=== PATIENT | male | born 1965 | race Caucasian/White ===

== ENCOUNTER 2017-02-27 18:16 | Emergency (ER) | payer OTHER ==
[~2017-02-27] VITALS: Ht 175.3 cm; Wt 81.8 kg
[2017-02-27 18:45] VITALS: BP 166/100; PULSE 92; RESP 17; O2SAT 97
--- NOTE | 2017-02-27 18:59 | ED.REPORT ---
HPI-Extremity Problem Upper Date of Service Feb 27, 2017 ED Provider: Marquez Maldonado MD Pt is a 51 year old male presenting to the ED complaining of pain to his left hand onset just prior to arrival. He reports that he was removing a lug nut when his tool slipped and he cut his hand. He is unsure when his last tetanus shot was. Denies being on blood thinners. He states that he is able to fully flex and extend his fingers. He denies numbness or tingling. No other injuries. Nursing Notes Stated Complaint: CUT FINGERS Chief Complaint: Laceration Nursing Notes Reviewed: Yes Allergies: Coded Allergies: No Known Allergies (Unverified , 02/27/17) General Time Seen by MD: 18:56 Chief Complaint Hand Injury left Hx Obtained From: Patient Arrived By: Walk-in Onset Occurred: Just prior to arrival Symptom Duration: Since onset Caused by: Accidental Location: : Hand left Quality: Painful Severity: Current: Moderate Severity: Maximum: Moderate Recent Healthcare: No recent doctor visit, No recent hospitalization Similar Sx Previous: No Past Medical History Past Medical History denies Past Surgical History denies Smoking History Never Smoker Ambulatory Status Independent Review of Systems Review of Systems Note: Reports laceration to hand Constitutional: Denies: Chills, Fever Neurologic: Denies: Weakness Complete sys rev & neg: except as marked. Respiratory: Denies: Shortness of breath GI: Denies: Abdominal pain, Vomiting Physical Exam Initial Vital Signs Initial VS: Reviewed General/Constitutional: Well-developed, Well-nourished Head / Eyes: Atraumatic, Normocephalic, PERRL ENT: Mucous membranes moist, Conjunctiva normal, No scleral icterus Respiratory: Breath sounds normal, Clear to auscultation, No respiratory distress Cardiovascular: Regular rate & rhythm, Heart sounds normal, Intact distal pulses Abdomen / GI: Soft, Non-tender, No guarding, No rebound, No distention Lower Extremities: Vascular intact, Neuro intact, No swelling, No tenderness Neurologic: Alert, Oriented, Nonfocal Psychiatric: Mood/affect normal, Behavior normal, Normal thought content Upper Extremity / MS: Neurologic intact, Vascular intact 2 cm laceration to left 3rd finger about palmar aspect. Left 4th finger 3cm laceration subcuatneous tissue. No exposed ligaments. Able to fully flex and extend fingers. Skin: Warm, Dry Procedures Laceration Management Laceration Management: patient with 2 lacertions one is 2 cm long, the other is 3 cm in length Time: 19:30 Procedure Performed by: Allied health pract Consent / Setup / Site Prep: Informed consent provided, Consent from patient , Time-out performed, Hand hygiene observed, Stand sterile technique Location of Wound: fingers Wound Length: 3 cm Local Anesthesia: Lidocaine 1%, 4cc, 27g needle Digital Block: Yes Digit Involved: Middle finger left, Ring finger left Wound Preparation: Normal saline Debridement: None Irrigation: Copious Undermining / Margins: Flaps aligned Repair Skin: ___ O (5), Nylon # Sutures - Skin: 6 Closure Layers: 1 Suture Technique: Simple Post-Procedure / Complications: Antibiotic oint applied, Dressing applied, No complications, Condition improved, Tolerated procedure well, Patient stable Re-Eval/Medical Decision Med Decision/Clinical Course Pt is a 51 year old male presenting to the ED complaining of pain to his left hand onset just prior to arrival. He reports that he was removing a lug nut when his tool slipped and he cut his hand. He is unsure when his last tetanus shot was. Denies being on blood thinners. He states that he is able to fully flex and extend his fingers. He denies numbness or tingling. No other injuries. Examination reveals lacerations as described above. Wound was prepped and draped in the usual sterile fashion and copiously irrigated. No foreign bodies were present. X-rays demonstrated no acute fractures or foreign bodies. Laceration was repaired as documented above. At this time I feel the patient is appropriate for discharge. Prior to discharge follow-up and return precautions were reviewed in detail with the patient who verbalized understanding and agreement with the plan. The patient was discharged in stable condition. Re-Evaluation/Progress : Time of Eval: 19:17 Patient Status: Condition improved Re-Evaluation/Progress Note: Discussed plan for discharge. Pt understands and agrees. Counseled Regarding: Diagnosis, Lab results, Need for follow-up, When/why to return to ED Discharge & Departure Impression: Primary Impression: Laceration of multiple sites of left hand and fingers Encounter type: initial encounter Qualified Code: S61.412A - Laceration without foreign body of left hand, initial encounter Additional Impression: Left hand pain Disposition: Home Discharge Condition All VS Reviewed: Yes Condition: Improved Patient Instructions: Finger Laceration (ED) Additional Instructions: Return in 10 days for suture removal. Return to the ER immediately if you develop any redness, warmth, fever or chills. Follow up with your primary care doctor in the next 2-3 days. Referrals: [facility] Provider for APC: Marquez Maldonado MD Attestation Portions of this note were transcribed by Ronna Arellano. I, Dr. Maldonado personally performed the history, physical exam and medical decision-making; I reviewed and confirmed the accuracy of the information in the transcribed note. Signed by: Rene De Dios, 02/27/2017 at 2023. copies to: [facility] Marquez Maldonado MD Feb 27, 2017 18:59 RONNA ARELLANO Feb 27, 2017 19:21 Emma Cordero Feb 27, 2017 19:54 Signed by: Rene De Dios, 02/27/2017 at 2023. copies to: [facility] Marquez Maldonado MD Feb 27, 2017 18:59 RONNA ARELLANO Feb 27, 2017 19:21 Emma Cordero Feb 27, 2017 19:54
[2017-02-27] MEDS ORDERED: TdaP Vaccine 0.5 mL Inj IM ONE (19:15)
--- NOTE | 2017-02-27 19:35 | DRSVH ---
PROCEDURE: X-RAY FINGERS, TWO VIEWS INDICATIONS: Foreign body, laceration TECHNIQUE: AP hand, 2 views of the left finger(s) acquired. COMPARISON: None. FINDINGS: Bones: Age-indeterminate likely chronic fracture deformity of the distal left fourth phalanx. Soft tissues: No suspicious soft tissue calcifications. No radiopaque foreign bodies. IMPRESSION: Chronic appearing fracture deformity of the distal left fourth phalanx. No radiopaque for eign bodies. Dictated by: Garcia Gonzalez M.D. on 02/27/2017 at 19:26 Approved by: Garcia Gonzalez M.D. on 02/27/2017 at 19:27
[2017-02-27 20:10] VITALS: BP 158/88; PULSE 68; RESP 16; O2SAT 96
[2017-02-27 20:11] VITALS: BP 158/88; PULSE 68; RESP 16; O2SAT 96
== END 2017-02-27 20:12 | disposition home or self-care (01) ==
LOC: SED 18:16
DX: S61.213A Laceration without foreign body of left middle finger without damage to nail, initial encounter (principal); S61.215A Laceration without foreign body of left ring finger without damage to nail, initial encounter; M79.642 Pain in left hand; W27.8XXA Contact with other nonpowered hand tool, initial encounter; Y93.89 Activity, other specified; Y92.9 Unspecified place or not applicable; Y99.8 Other external cause status; Z23 Encounter for immunization